=== PATIENT | male | born 1990 | race Caucasian/White ===

== ENCOUNTER → 2024-03-18 | Outpatient (CLI) | payer BC ==
[2024-03-18 12:04] VITALS: BP 151/87; PULSE 76; RESP 16; TEMP 98.9
--- NOTE | 2024-03-18 12:33 | P.PROGSL ---
Subjective DATE: 03/18/2024 CONSULTATION/NEW PATIENT EVALUATION HISTORY OF PRESENT ILLNESS/SLEEP-WAKE EVALUATION: 34-year-old gentleman had been evaluated in the sleep center for possible obstructive sleep apnea hypopnea syndrome. SLEEP SCHEDULE: Usually sleep schedule from 10 PM to 5:40 AM on working days and from 10 PM to 6:30 AM on weekend. FALLING ASLEEP: Sometimes patient has difficulties with falling asleep, has TV set in bedroom. DURING SLEEP: Patient sleeps on the stomach position with snoring and witnessed episodes of stop breathing during the sleep by his . Positive history of restless leg, sleep talking, sweating. Patient wakes up from sleep 3 times with nocturia no history of hypnogogical hallucinations, sleep paralysis, or c ataplexy. DURING THE DAY/WAKE STATE: Patient has difficulties to pay attention during the day, has problems with concentration and irritability. [place] sleepiness scale is 8. Usually patient does not take naps. PAST MEDICAL HISTORY: Mostly negative, history of leg twitching at night. PAST SURGICAL HISTORY: [place] teeth have been removed. MEDICATIONS: Vitamins. SOCIAL HISTORY: Please see below. FAMILY HISTORY: Cancer. REVIEW OF SYSTEMS: Snoring, multiple awakenings from sleep. No fevers. No double vision. No recent chest pain. No shortness of breath. No abdominal pain. No bleeding episodes. No blood in urine. No seizure episodes. PHYSICAL EXAMINATION: GENERAL: A pleasant patient without any distress. VITAL SIGNS: Please see below, weight 253 pounds, BMI 34.5. HEENT: PERRLA, EOMI. Evaluation of oropharynx showed tongue protrudes midline,position of soft palate Mallampati 2, but short distance between soft palate and posterior pharyngeal wall. NECK: Supple. No JVD. Thyroid is not palpable. 15.5 inches in circumference. LUNGS: Clear to percussion and to auscultation. Good air exchange. No wheezing or rhonchi. HEART: S1, S2 regular. No murmurs, gallops or rubs. ABDOMEN: Soft and nontender. Bowel sounds are present. No organomegaly appreciated. EXTREMITIES: No clubbing or cyanosis. BAR EXAMINER: Awake, alert, and oriented x3. Cranial nerves 2 to 7 intact. There is no fasciculation or atrophy noted. No focal deficits observed. ASSESSMENT: 1. Snoring, witnessed episodes of stop breathing during the sleep, short distance between soft palate and posterior pharyngeal wall. Possible obstructive sleep apnea hypopnea syndrome. 2. History of leg twitching during the sleep. 3. Increasing blood pressure in the office. 4. Obesity by BMI 34.5. PLAN: 1. Polysomnography for evaluation of patient's breathing during sleep and also to check for possible leg movements. 2. Following plan after reading sleep study 3. Preferable position during sleep on the side. 4. No driving if patient feels any sleepiness. Patient is aware of civil and criminal liability for unsafe driving. 5. Sleep hygiene with regular sleep time for at least 7.5-8 hours. 6. Watching weight. Thank you very much for referring this patient for consultation. Sincerely, Octavio Hui MD, PhD, FAASM. Diplomat of [place], Sleep Medicine Board by [employer] [facility] [place] cc: Justa Taylor Objective - Vital Signs Vital Signs: Vital Signs Temp 98.9 F 03/18/24 12:03 Pulse 76 03/18/24 12:03 Resp 16 03/18/24 12:03 BP 151/87 03/18/24 12:03 Pulse Ox 98 03/18/24 12:03 FiO2 Intake & Output 03/17/24 03/18/24 03/18/24 18:59 06:59 18:59 Weight 115.666 kg Home Medications: Home Medications Medication Instructions Recorded Confirmed Type Glucosamine/Chondr Diaz A Sod [Osteo See Rx Instructions .ROUTE .COMPLEX 03/18/24 03/18/24 History Bi-Flex Caplet] Multivitamins, Thera [Multivitamin See Rx Instructions .ROUTE .COMPLEX 03/18/24 03/18/24 History (formulary)]
== END ==
LOC: 3 N SLEEP 11:19
PROVIDERS: ATTEND Internal Medicine
DX: R06.83 Snoring (principal); R03.0 Elevated blood-pressure reading, without diagnosis of hypertension; E66.9 Obesity, unspecified; Z68.34 Body mass index [BMI] 34.0-34.9, adult; Z87.39 Personal history of other diseases of the musculoskeletal system and connective tissue
CPT/HCPCS: 99211

== ENCOUNTER 2024-04-06 19:45 | Outpatient (CLI) | payer BC ==
--- NOTE | 2024-04-28 11:56 | P.PCN ---
Description of Procedure: POLYSOMNOGRAPHY REPORT PROCEDURE(S)/DATE(S): Polysomnography 04/06/2024 CLINICAL: Patient has been seen in the sleep center for evaluation of obstructive sleep apnea-hypopnea syndrome. Please see my consultation. Sleep study has been done for evaluation of patient breathing during the sleep. PROCEDURE: The standard montage for clinical polysomnography included the electroencephalogram, the electrooculogram, the mentalis surface electromyography and Lead II cardiography. The respiratory battery consisted of measurements of nasal/buccal air flow, pressure transducer measurements from nose, thoracic and/or abdominal effort and intercostal surface electromyography. Video monitoring has been done to check for any parasomnia events. Nocturnal oxyhemoglobin saturations were obtained by finger oximetry. Step-eubanks titration with positive airway pressure was utilized to control the respiratory events, if necessary. RESULTS: During the diagnostic sleep study sleep efficiency was decreased to 76.5%. Latency to sleep onset was significantly prolonged to 48.0 min. Sleep architecture showed stage NI was increased to 13.1%, Delta sleep was was in good range 17.8%, REM sleep was high 32.2%. Respiratory channel showed 0 obstructive apneas, 0 mixed apneas, 0 central apnea s, 43 hypopneas with lowest oxygen level 83%. Total apnea hypopnea index was 7.8. Heart rate was in the range between 67 and 81, average 73. EMG showed 8.9 periodic limb movements per hour with 2.0 micro-arousals per hour. IMPRESSIONS: 1. Obstructive sleep apnea hypopnea syndrome. 2. Very minimal periodic limb movements have been documented in normal range by today's criteria. 3. Insomnia Please see other impressions from consultation PLAN: 1. Patient will be started on treatment with AutoPap for correction of respiratory abnormalities during sleep. 2. Losing weight program. 3. Sleep hygiene with regular time in bed for at least 7-1/2 hours. 4. No driving if feeling sleepiness. 5. I will see patient for follow-up visit to evaluate clinical response on treatment, compliance with treatment and [place] adjustments related to mask fitting pressure and humidification. Thank you very much for allowing me to participate in the management of your patient. Sincerely, Octavio Hui MD, PhD, FAASM. Diplomat of [place] [employer], Sleep Medicine Board by [employer] [employer] [facility] [place] cc: Justa Taylor NPC
== END 2024-04-07 05:30 | disposition home or self-care (01) ==
LOC: 3 N SLEEP 19:45
PROVIDERS: ATTEND Internal Medicine
DX: G47.33 Obstructive sleep apnea (adult) (pediatric) (principal); G47.61 Periodic limb movement disorder; G47.00 Insomnia, unspecified
CPT/HCPCS: 95810